=== PATIENT | female | born 1955 | race African-American/Black ===

== ENCOUNTER 2017-01-09 10:16 | Outpatient (CLI) | payer BC | END 2017-01-09 21:34 | disposition home or self-care (01) | LOC: RAD 10:16 | DX: Z12.31 Encounter for screening mammogram for malignant neoplasm of breast (principal) ==

== ENCOUNTER 2017-08-07 13:43 | Emergency (ER) | payer BC ==
[~2017-08-07] VITALS: Ht 162.6 cm; Wt 100.7 kg
== END 2017-08-07 15:24 | disposition home or self-care (01) ==
LOC: ED 13:43
DX: S91.152A Open bite of left great toe without damage to nail, initial encounter (principal); W53.11XA Bitten by rat, initial encounter; Y92.098 Other place in other non-institutional residence as the place of occurrence of the external cause
CPT/HCPCS: 90715; 99282; J0696

== ENCOUNTER 2019-08-03 10:37 | Emergency (ER) | payer OTHER ==
[~2019-08-03] VITALS: Ht 165.1 cm; Wt 93.4 kg
[2019-08-03 10:48] VITALS: TEMP 97.3
[2019-08-03] MEDS ORDERED: METF500T PO (11:03)
[2019-08-03 11:50] VITALS: BP 157/75
== END 2019-08-03 11:50 | disposition home or self-care (01) ==
LOC: ED 10:37
DX: S09.8XXA Other specified injuries of head, initial encounter (principal); S70.01XA Contusion of right hip, initial encounter; W18.39XA Other fall on same level, initial encounter; Y92.89 Other specified places as the place of occurrence of the external cause
CPT/HCPCS: 99283

== ENCOUNTER 2020-07-18 09:23 | Day surgery (SDC) | payer OTHER ==
[2020-07-13 09:36] LABS: POTASSIUM 4.4 mmol/L (3.6-5.2)
[2020-07-13 09:38] LABS: PLATELET COUNT 155 K/uL (152-353)
[~2020-07-18] VITALS: Ht 30.5 cm; Wt 0.5 kg
[~2020-07-18 09:23] MED LIST: METF500T PO
== END 2020-07-18 12:25 | disposition home or self-care (01) ==
LOC: OR 09:23
PROVIDERS: ATTEND Internal Medicine Gastroenterology
PROC: 0DBM8ZZ Excision of Descending Colon, Via Natural or Artificial Opening Endoscopic (ICD-10-PCS; principal; 2020-07-18)
PROC: 0DBN8ZZ Excision of Sigmoid Colon, Via Natural or Artificial Opening Endoscopic (ICD-10-PCS; 2020-07-18)
DX: K63.5 Polyp of colon (principal); K57.30 Diverticulosis of large intestine without perforation or abscess without bleeding; K64.8 Other hemorrhoids; Z12.11 Encounter for screening for malignant neoplasm of colon; Z20.822 Contact with and (suspected) exposure to COVID-19
CPT/HCPCS: 80053; 85027; 87635; J2704; U0003

== ENCOUNTER 2020-12-10 13:45 | Outpatient (CLI) | payer OTHER | END 2020-12-10 20:08 | disposition home or self-care (01) | LOC: MAMMO 13:45 | PROVIDERS: ATTEND Internal Medicine Infectious Disease | DX: Z12.31 Encounter for screening mammogram for malignant neoplasm of breast (principal) ==

== ENCOUNTER 2021-01-28 13:01 | Outpatient (CLI) | payer OTHER | END 2021-01-28 21:51 | disposition home or self-care (01) | LOC: RAD 13:01 | PROVIDERS: ATTEND Nurse Practitioner Family | DX: M54.59 Other low back pain (principal); Z13.820 Encounter for screening for osteoporosis; N95.8 Other specified menopausal and perimenopausal disorders ==

== ENCOUNTER 2021-08-16 09:01 | Outpatient (CLI) | payer OTHER | END 2021-08-16 19:18 | disposition home or self-care (01) | LOC: LABW 09:01 | PROVIDERS: ATTEND Internal Medicine Gastroenterology | DX: K64.0 First degree hemorrhoids (principal) | CPT/HCPCS: 82272 ==

== ENCOUNTER 2021-12-26 13:13 | Outpatient (CLI) | payer OTHER | END 2021-12-26 22:09 | disposition home or self-care (01) | LOC: MAMMO 13:13 | PROVIDERS: ATTEND Family Medicine | DX: Z12.31 Encounter for screening mammogram for malignant neoplasm of breast (principal) ==